=== PATIENT | male | born 1995 | race Caucasian/White ===

== ENCOUNTER 2017-01-28 20:29 | Emergency (ER) | payer MEDICAID | END 2017-01-28 21:40 | disposition home or self-care (01) | LOC: D.ER 20:29 | DX: J01.90 Acute sinusitis, unspecified (principal); B19.20 Unspecified viral hepatitis C without hepatic coma; F17.200 Nicotine dependence, unspecified, uncomplicated ==

== ENCOUNTER 2018-02-04 19:25 | Emergency (ER) | payer SELFPAY | END 2018-02-04 23:43 | disposition home or self-care (01) | LOC: D.ER 19:25 | DX: J06.9 Acute upper respiratory infection, unspecified (principal); J02.9 Acute pharyngitis, unspecified; M79.1 Myalgia; F17.200 Nicotine dependence, unspecified, uncomplicated; B19.20 Unspecified viral hepatitis C without hepatic coma ==

== ENCOUNTER 2018-05-26 19:43 | Emergency (ER) | payer SELFPAY ==
[~2018-05-26] VITALS: Ht 188 cm; Wt 68.2 kg
[2018-05-26 20:08] VITALS: Ht 188 cm; Wt 68.2 kg
[2018-05-26] MEDS ORDERED: VOLTAREN75 MG PO (21:47)
[2018-05-27 03:05] VITALS: BP 120/87
== END 2018-05-26 22:39 | disposition home or self-care (01) ==
LOC: D.ER 19:43
DX: S93.401A Sprain of unspecified ligament of right ankle, initial encounter (principal); X50.1XXA Overexertion from prolonged static or awkward postures, initial encounter; Y93.89 Activity, other specified; Y92.019 Unspecified place in single-family (private) house as the place of occurrence of the external cause; F17.200 Nicotine dependence, unspecified, uncomplicated

== ENCOUNTER 2020-03-12 15:30 | Emergency (ER) | payer SELFPAY ==
[~2020-03-12] VITALS: Ht 188 cm; Wt 63.6 kg
[~2020-03-12 15:30] MED LIST: VOLTAREN75 MG PO
[2020-03-12 15:40] VITALS: Ht 188 cm; Wt 63.6 kg
[2020-03-12] MEDS ORDERED: VOLTAREN75 MG PO (16:23)
[2020-03-12] MEDS ORDERED: MUPIROCIN22 GM TOPICAL (16:23)
[2020-03-12 17:16] VITALS: BP 136/85
== END 2020-03-12 17:16 | disposition home or self-care (01) ==
LOC: D.ER 15:30
DX: S99.921A Unspecified injury of right foot, initial encounter (principal); S90.811A Abrasion, right foot, initial encounter; S91.301A Unspecified open wound, right foot, initial encounter; X58.XXXA Exposure to other specified factors, initial encounter; R56.9 Unspecified convulsions